=== PATIENT | male | born 1940 | race Caucasian/White ===

== ENCOUNTER → 2018-02-20 10:36 | Outpatient (CLI) | payer MEDICARE, SELFPAY ==
[2018-02-20 11:21] LABS: Add Manual Diff / Slide Review NO; Basophils Percent Auto 0.7 % (0-2); Eosinophils Percent Auto 3.1 % (2-4); Hematocrit 40.5 % (41-53); Hemoglobin 13.7 g/dL (13.5-17.5); Lymphocytes Percent Auto 36.4 % (25-40); Mean Corpuscular HGB Conc 33.8 % (30-36); Mean Corpuscular Hemoglobin 31.2 PG (26-34); Mean Corpuscular Volume 92.2 fL (80-100); Monocytes Percent Auto 8.1 % (3-14); Neutrophils Absolute Auto 4100 /uL (3000-5900); Neutrophils Percent Auto 51.7 % (50-75); Platelet Count 279 X10^3/uL (150-400); Red Blood Cell Count 4.39 X10^6/uL (4.5-5.9); Red Cell Distribution Width 13.4 % (11.6-14.8); White Blood Cell Count 7.8 X10^3/uL (4.5-11.0)
[2018-02-20 11:52] LABS: Erythrocyte Sedimentation Rate 24 MM/HR (0-15)
[2018-02-20 11:54] LABS: Alanine Aminotransferase 22 IU/L (21-72); Albumin 4.7 g/dL (3.5-5.0); Albumin Globulin Ratio 1.7 (1.0-2.8); Alkaline Phosphatase 66 U/L (38-126); Aspartate Aminotransferase 20 IU/L (17-59); BUN Creatinine Ratio 13.3 (6-22); Bilirubin Total 0.6 mg/dL (0.2-1.3); Blood Urea Nitrogen 12 mg/dL (9-20); C-Reactive Protein Quant 0.8 mg/dL (<1.0); Carbon Dioxide 24 mmol/L (22-32); Chloride 105 mmol/L (98-107); Cholesterol 134 mg/dL (140-199); Estimated Glomerular Filt Rate > 60.0 mL/min (>60); Globulin 2.8 g/dL (1.7-4.1); Glucose 100 mg/dL (80-110); HDL Cholesterol 31 mg/dL (40-60); HEMOLYSIS < 15 (0-50); LDL Cholesterol Calculated 67 mg/dL (<100); Potassium 4.3 mmol/L (3.4-5.1); Sodium 144 mmol/L (137-145); Total Protein 7.5 g/dL (6.3-8.2); Triglycerides 181 mg/dL (35-150); Uric Acid 8.8 mg/dL (3.5-8.5)
[2018-02-20 12:20] LABS: Thyroid Stimulating Hormone 2.71 uIU/mL (0.47-4.68)
== END ==
PROVIDERS: Family Provider Family Medicine; PCP Family Medicine; Visit Provider Family Medicine
DX: R42 Dizziness and giddiness (principal)
CPT/HCPCS: 36415; 80053; 80061; 84443; 84550; 85025; 85651; 86140

== ENCOUNTER → 2019-05-04 10:26 | Outpatient (CLI) | payer MEDICARE, SELFPAY ==
[2019-05-04 11:22] LABS: Add Manual Diff / Slide Review NO; Basophils Absolute Auto 0 /uL (0-100); Basophils Percent Auto 0.6 % (0-2); Eosinophils Absolute Auto 300 /uL (0-450); Eosinophils Percent Auto 3.5 % (2-4); Hematocrit 41.5 % (41-53); Lymphocytes Absolute Auto 2500 /uL (1100-4500); Lymphocytes Percent Auto 33.1 % (25-40); Mean Corpuscular HGB Conc 33.7 % (30-36); Mean Corpuscular Hemoglobin 31.2 PG (26-34); Mean Corpuscular Volume 92.6 fL (80-100); Monocytes Absolute Auto 600 /uL (0-900); Monocytes Percent Auto 8.1 % (3-14); Neutrophils Absolute Auto 4100 /uL (1500-7000); Neutrophils Percent Auto 54.7 % (50-75); Platelet Count 272 X10^3/uL (150-400); Red Blood Cell Count 4.48 X10^6/uL (4.5-5.9); Red Cell Distribution Width 13.2 % (11.6-14.8); White Blood Cell Count 7.5 X10^3/uL (4.5-11.0)
[2019-05-04 13:16] LABS: Alanine Aminotransferase 19 IU/L (<50); Albumin 4.8 g/dL (3.5-5.0); Albumin Globulin Ratio 1.6 (1.0-2.8); Alkaline Phosphatase 70 U/L (38-126); Aspartate Aminotransferase 27 IU/L (17-59); BUN Creatinine Ratio 13.6 (6-22); Bilirubin Total 0.6 mg/dL (0.2-1.3); Blood Urea Nitrogen 15 mg/dL (9-20); Calcium 9.8 mg/dL (8.4-10.2); Carbon Dioxide 24 mmol/L (22-32); Chloride 103 mmol/L (98-107); Cholesterol 162 mg/dL (140-199); Estimated Glomerular Filt Rate > 60.0 mL/min (>60); Glucose 101 mg/dL (80-110); HDL Cholesterol 32 mg/dL (40-60); HEMOLYSIS < 15 (0-50); LDL Cholesterol Calculated 79 mg/dL (<100); Potassium 4.5 mmol/L (3.4-5.1); Sodium 140 mmol/L (137-145); Total Protein 7.8 g/dL (6.3-8.2); Triglycerides 256 mg/dL (35-150); Uric Acid 8.5 mg/dL (3.5-8.5)
[2019-05-04 13:47] LABS: Prostate Specific Antigen Scrn 3.85 ng/mL (0.1-4.0)
== END ==
PROVIDERS: PCP Family Medicine; Visit Provider Family Medicine
DX: Z95.1 Presence of aortocoronary bypass graft (principal)
CPT/HCPCS: 36415; 80053; 80061; 84550; 85025; G0103

== ENCOUNTER 2019-08-22 10:21 | Emergency (ER) | payer MEDICARE, SELFPAY ==
[2019-08-22 10:23] VITALS: BP 142/66; PULSE 66; RESP 14; TEMP 36.4; O2SAT 100; BMI 29.7
--- NOTE | 2019-08-22 10:29 | PC.NURSE ---
pt believes he has a kidney stone with hx of same. Pt unable to urinate upon arrival to ED,last urianted [phone]
--- NOTE | 2019-08-22 11:12 | ED.MALEGU ---
HPI - Male Genitourinary General Chief complaint: Urogenital-Male Stated complaint: possible kidney stone Time Seen by Provider: 08/22/19 10:53 Source: patient and old records reviewed Mode of arrival: Ambulatory Limitations: no limitations History of Present Illness HPI Narrative: This is a 79-year-old male comes the emergency department with complaint of left lower quadrant pain. Patient states that he developed pain this morning about 8:00 a.m. He states it feels like when he has had kidney stones in the past. He states this feels similar location. He denies any flank or back pain. He denies any pain elsewhere in his abdomen. No fevers. He has had some nausea and vomiting several times this morning. He has had normal bowel movements with no black or bloody stools or change in character. He has had no major changes in urination he has not noted any hematuria, dysuria, urgency or frequency. Patient states he has had lithotripsy several times in the past. He has followed with Dr. Bellamy with Urology over at [facility]. He also has a history of CABG, he takes an aspirin daily, atorvastatin as well as blood pressure medication. Related Data Home Medications Medication Instructions Recorded Confirmed diphenhydramine-acetaminophen 2 tab PO HSP PRN #0 10/17/16 01/15/18 [Tylenol PM Extra Strength] aspirin 81 mg tablet,delayed 162 mg PO DAILY 01/15/18 01/15/18 release Previous Rx's Medication Instructions Recorded famotidine [Pepcid] 0 PO QDAY #100 10/17/16 atorvastatin 40 mg tablet 40 mg PO HS #90 tab 05/04/19 losartan 25 mg tablet 25 mg PO QDAY #90 tab 05/04/19 probenecid 500 mg tablet 500 mg PO BID #60 tab 05/04/19 hydrocodone-acetaminophen [Weston] 1 tab PO Q6H PRN #10 tab 08/22/19 tamsulosin [Flomax] 0.4 mg PO DAILY #7 cap 08/22/19 Allergies Allergy/AdvReac Type Severity Reaction Status Date / Time furosemide [From LASIX] Allergy Mild RASH Verified 08/22/19 10:26 Sulfa (Sulfonamide Allergy Verified 08/22/19 10:26 Antibiotics) Review of Systems Review of Systems ROS Unobtainable: All systems reviewed & are unremarkable except as noted in HPI and below Patient History Medical History Acne (Chronic ~1955) Cataracts, bilateral (Chronic ~2009) Chicken pox (Resolved ~1947) Gout (Chronic ~2004) Kidney stones (Resolved ~1982) Measles (Resolved ~1947) Mumps (Resolved ~1949) Sleep apnea (Chronic ~2009) Surgical History Anesthesia (Resolved) History of lithotripsy (~1982) History of lithotripsy (~2002) History of surgical removal of ganglion cyst (Resolved ~1967) Status post appendectomy (~1948) Status post cholecystectomy (~2002) Family History (Updated 01/14/18 @ 21:20 by Kandy Burton) Father Heart disease Mother Diabetes mellitus Heart disease Hypertension Stroke Brother Cancer Social History Smoking Status: Former smoker Smoking Status: Former smoker alcohol intake frequency: holidays/special occasions only Substance Use Type: does not use Exam Narrative Exam Narrative: GENERAL: Alert and oriented x three, well-nourished elderly male in mild distress. HEENT: Head normocephalic, atraumatic, EOMI, pupils reactive, face symmetric, moist mucous membranes NECK: Supple, full range of motion CARDIOVASCULAR: Regular rate and rhythm without murmurs, rubs or gallops. RESPIRATORY: Breath sounds equal bilaterally, no wheezes rales or rhonchi. ABDOMEN: Soft, nontender. Normoactive bowel sounds all 4 quadrants. No guarding or rebound, rigidity, no mass : No CVA tenderness EXTREMITIES: Normal range of motion, no clubbing or edema. Neurovascularly intact NEUROLOGICAL: Cranial nerves II through XII grossly intact. Moving all extremities SKIN: Warm, dry, no petechiae, no rashes or lesions. Initial Vital Signs Initial Vital Signs: Vital Signs Temperature 97.5 F L 08/22/19 10:23 Pulse Rate 66 08/22/19 10:23 Respiratory Rate 14 08/22/19 10:23 Blood Pressure 142/66 H 08/22/19 10:23 Pulse Oximetry 100 08/22/19 10:23 Course Orders Ordered: ED Orders 08/22/19 10:28 Basic Metabolic Panel Stat Complete Blood Count AUTO DIFF Stat 08/22/19 11:19 CT kidney ureter bladder (KUB) Stat 08/22/19 12:32 Urine Microscopic Stat Discontinued Medications Sodium Chloride (Normal Saline 0.9%) 1,000 mls @ 1,000 mls/hr IV BOLUS ONE Stop: 08/22/19 12:17 Last Infusion: 08/22/19 12:36 Dose: 0 mls/hr Documented by: Admin: 08/22/19 11:23 Dose: 1,000 mls/hr Documented by: MARI Ketorolac Tromethamine (Toradol) 15 mg IV NOW ONE Stop: 08/22/19 11:19 Last Admin: 08/22/19 11:23 Dose: 15 mg Documented by: MARI Ondansetron HCl (Zofran) 4 mg IV NOW ONE Stop: 08/22/19 11:19 Last Admin: 08/22/19 11:23 Dose: 4 mg Documented by: MARI Vital Signs Vital signs: Vital Signs - 8 hr 08/22/19 10:23 08/22/19 12:30 Temperature 97.5 F L Pulse Rate 66 62 Respiratory Rate 14 16 Blood Pressure 142/66 H Blood Pressure [Right Arm] 180/86 H Pulse Oximetry 100 98 MDM - Male Genitourinary Lab Data Attestation: I reviewed the patient's lab results. Result diagrams: 08/22/19 10:28 08/22/19 10:28 Labs: Lab Results 08/22/19 08/22/19 08/22/19 Range/Units 10:28 10:28 12:32 WBC 7.1 (4.5-11.0) X10^3/uL RBC 4.25 L (4.5-5.9) X10^6/uL Hgb 13.5 (13.5-17.5) g/dL Hct 39.9 L (41-53) % MCV 93.8 (80-100) fL MCH 31.6 (26-34) PG MCHC 33.7 (30-36) % RDW 13.5 (11.6-14.8) % Plt Count 259 (150-400) X10^3/uL Neut % (Auto) 58.9 (50-75) % Lymph % (Auto) 28.5 (25-40) % Curry % (Auto) 7.9 (3-14) % Eos % (Auto) 4.0 (2-4) % Baso % (Auto) 0.7 (0-2) % Neut # (Auto) 4200 (0098-4657) /uL Lymph # (Auto) 2000 (7895-5112) /uL Curry # (Auto) 600 (0-900) /uL Eos # (Auto) 300 (0-450) /uL Baso # (Auto) 0 (0-100) /uL Sodium 142 (137-145) mmol/L Potassium 4.3 (3.4-5.1) mmol/L Chloride 106 (98-107) mmol/L Carbon Dioxide 26 (22-32) mmol/L BUN 16 (9-20) mg/dL Creatinine 1.25 (0.66-1.25) mg/dL Estimated GFR 55.4 L (>60) mL/min BUN/Creatinine Ratio 12.8 (6-22) Glucose 135 H (80-110) mg/dL Calcium 9.3 (8.4-10.2) mg/dL Urine RBC 1-5/hpf (0-5/HPF) Urine WBC 0-1/hpf (0-5/HPF) Ur Squamous Epith Cells 0-1 /hpf (0-5/HPF) Urine Bacteria None seen (None) Ur Culture Indicated? Cult not indicated Urine Dip Bedside Urine Glucose Negative Bedside Urine Bilirubin - Negative Bedside Urine Ketone - Negative Urine Specific Herald 1.025 Bedside Urine Occult Blood + Bedside Urine pH 5.5 Bedside Urine Protein +/- 15 Bedside Urine Urobilinogen - Negative Bedside Urine Nitrite - Negative Bedside Urine Leukocytes - Negative Esterase Imaging Data CT scan - abdomen/pelvis: Radiologist's Impression: [address] [address] [address] Scan Report Signed Patient: Shane Rice [facility]#: [id number] : 8Acct:[id number] Age/Sex: 79 / MDate of Service: 08/22/19 Loc: ED Accession Number: [id number] Procedure: CT kidney ureter bladder (KUB) Ordering Provider: Karen Zepeda D.O. PROCEDURE: CT KIDNEY URETER BLADDER (KUB) INDICATIONS: LLQ pain, hx of stones, feels similar TECHNIQUE: Noncontrast 5 mm thick sections acquired from the diaphragms to the symphysis. 5 mm thick coronal and sagittal reformats were then performed. For radiation dose reduction, the following was used: automated exposure control, adjustment of mA and/or kV according to patient size. COMPARISON: [facility], CT, THORAX WITHOUT CONTRAST, 04/09/2013, 11:46. FINDINGS: Image quality: Diagnostic. Lung bases: There is mild scarring versus atelectasis at the right lung base. A small pulmonary nodule is evident along the lateral margin of the left costophrenic angle, measuring up to 5 mm in diameter, which is not significantly changed since 2012, suggesting a benign process. Heart size is normal. Urinary system: Both kidneys are normal in size. No obvious renal lesions are appreciated. However, evaluation for renal abnormalities is limited without contrast. There are multiple bilateral renal calculi identified with the largest located within the mid aspect of the left kidney, measuring up to approximately 7 mm. There is mild left-sided hydronephrosis, related to a left ureteral calculus located at the ureteropelvic junction, which measures approximately 4 x 4 by 5 mm (image 49, series 2). No additional left-sided ureteral calculi are evident. However, there is a small bladder calculus identified near the vesicoureteral junction within the bladder itself, measuring approximately 3 mm in diameter. No right ureteral calculi, hydronephrosis, or hydroureter is evident. No significant urinary bladder wall thickening is appreciated. The prostate gland is not enlarged. Other solid organs: Liver is normal in size. Gallbladder is surgically absent. Pancreas is normal in contours. Spleen is normal in size. No adrenal nodules. Peritoneum and bowel: The stomach is unremarkable. The small bowel loops are nondilated. No abnormal amount of stool is seen within the colon. Extensive distal colonic diverticulosis is identified without surrounding inflammation to suggest acute diverticulitis. A more focally prominent peripherally calcified diverticula in appears to be present within the ascending colon just above the level of the cecum. The appendix is well-visualized and normal. There is no free fluid, loculated fluid collection, or free air. There is a very small fat containing periumbilical hernia. Nodes and vessels: No retroperitoneal or mesenteric adenopathy by size criteria. Aorta and inferior vena cava are normal in caliber. There is aortic atherosclerosis. Other pelvic soft tissues: No free pelvic fluid. No pelvic adenopathy is appreciated. Small bilateral fat containing inguinal hernias are noted. No free fluid or loculated fluid collection is appreciated. Note is made of bilateral scrotal hydroceles. Bones: No suspicious bony lesions. No vertebral body compression fractures. Moderate multilevel degenerative changes of the lower lumbar spine are appreciated. Median sternotomy changes are incidentally noted. There mild degenerative changes of the pelvic joints. IMPRESSION: 1. Small to moderate-sized at least partially obstructing proximal left ureteral calculus at the UPJ with associated mild hydronephrosis. 2. Additional nonobstructing bilateral renal calculi. No right sided hydronephrosis. 3. Colonic diverticulosis without diverticulitis. 4. Small bilateral fat containing angle hernias. 5. Bilateral scrotal hydroceles. Dictated by: Jorje Thompson M.D. on 08/22/2019 at 10:51 Approved by: Jorje Thompson M.D. on 08/22/2019 at 10:57 MDM Narrative Medical decision making narrative: Patient's CBC and BMP did not show major changes. His CT shows multiple bilateral renal calculi, there is some mild left hydro with a calculus at the ureteropelvic junction that is 4 x 5 mm. There is a small bladder calculi identified near the vesicoureteral junction within the bladder itself that is 3 mm in diameter. Patient does have colonic diverticulosis but no diverticulitis noted. There is some focally prominent peripherally calcified diverticula in the ascending colon just above the level of cecum appendix is well visualized and normal. A very small fat containing periumbilical hernia. Patient also has bilateral scrotal hydroceles. Patient urine sample shows hematuria, no signs of infection. Patient is feeling better and pain well controlled. He has follow up with urology. Plan for flomax, ibuprofen if he tolerates and norco prn. Discussed return precautions. Discharge Plan Departure Patient Disposition: Home Clinical Impression: Kidney stone on left side Discharge Date/Time: 08/22/19 12:37 Instructions: DI for Kidney Stones Activity Restrictions/Additional Instructions: Follow-up with your urologist if your symptoms are not resolving over the next several day. Take flomax once daily until gone. Take pain medication as prescribed, this medication can make you sleepy do not drive, perform hazardous activities or make any major decisions while taking it. Make sure your taking a stool softener while taking any narcotic pain medication. Your prescription was sent ot [facility]. Return for fevers greater 100.4 F, rapidly worsening abdominal or flank pain, persistent vomiting, passing out, inability urinate, black or bloody stools or other new or concerning symptoms. Prescriptions: New tamsulosin [Flomax] 0.4 mg capsule 0.4 mg PO DAILY Qty: 7 RF: 0 hydrocodone-acetaminophen [Weston] 5-325 mg tablet 1 tab PO Q6H PRN (Reason: pain) Qty: 10 RF: 0 No Action diphenhydramine-acetaminophen [Tylenol PM Extra Strength] 500 MG/25 MG tablet 2 tab PO HSP PRNQty: 0 RF: 0 famotidine [Pepcid] 20 MG tablet 0 PO QDAY Qty: 100 RF: 5 atorvastatin 40 mg tablet 40 mg PO HS Qty: 90 RF: 3 losartan 25 mg tablet 25 mg PO QDAY Qty: 90 RF: 3 probenecid 500 mg tablet 500 mg PO BID Qty: 60 RF: 5 aspirin 81 mg tablet,delayed release (DR/EC) 162 mg PO DAILY RF: 0 Referrals: Kermit Peterson MD [Primary Care Provider] - Jameson Bellamy MD [Non-Staff] -
--- NOTE | 2019-08-22 11:19 | DI.CT.S_ITS ---
PROCEDURE: CT KIDNEY URETER BLADDER (KUB) INDICATIONS: LLQ pain, hx of stones, feels similar TECHNIQUE: Noncontrast 5 mm thick sections acquired from the diaphragms to the symphysis. 5 mm thick coronal and sagittal reformats were then performed. For radiation dose reduction, the following was used: automated exposure control, adjustment of mA and/or kV according to patient size. COMPARISON: [facility], CT, THORAX WITHOUT CONTRAST, 04/09/2013, 11:46. FINDINGS: Image quality: Diagnostic. Lung bases: There is mild scarring versus atelectasis at the right lung base. A small pulmonary nodule is evident along the lateral margin of the left costophrenic angle, measuring up to 5 mm in diameter, which is not significantly changed since 2012, suggesting a benign process. Heart size is normal. Urinary system: Both kidneys are normal in size. No obvious renal lesions are appreciated. However, evaluation for renal abnormalities is limited without contrast. There are multiple bilateral renal calculi identified with the largest located within the mid aspect of the left kidney, measuring up to approximately 7 mm. There is mild left-sided hydronephrosis, related to a left ureteral calculus located at the ureteropelvic junction, which measures approximately 4 x 4 by 5 mm (image 49, series 2). No additional left-sided ureteral calculi are evident. However, there is a small bladder calculus identified near the vesicoureteral junction within the bladder itself, measuring approximately 3 mm in diameter. No right ureteral calculi, hydronephrosis, or hydroureter is evident. No significant urinary bladder wall thickening is appreciated. The prostate gland is not enlarged. Other solid organs: Liver is normal in size. Gallbladder is surgically absent. Pancreas is normal in contours. Spleen is normal in size. No adrenal nodules. Peritoneum and bowel: The stomach is unremarkable. The small bowel loops are nondilated. No abnormal amount of stool is seen within the colon. Extensive distal colonic diverticulosis is identified without surrounding inflammation to suggest acute diverticulitis. A more focally prominent peripherally calcified diverticula in appears to be present within the ascending colon just above the level of the cecum. The appendix is well-visualized and normal. There is no free fluid, loculated fluid collection, or free air. There is a very small fat containing periumbilical hernia. Nodes and vessels: No retroperitoneal or mesenteric adenopathy by size criteria. Aorta and inferior vena cava are normal in caliber. There is aortic atherosclerosis. Other pelvic soft tissues: No free pelvic fluid. No pelvic adenopathy is appreciated. Small bilateral fat containing inguinal hernias are noted. No free fluid or loculated fluid collection is appreciated. Note is made of bilateral scrotal hydroceles. Bones: No suspicious bony lesions. No vertebral body compression fractures. Moderate multilevel degenerative changes of the lower lumbar spine are appreciated. Median sternotomy changes are incidentally noted. There mild degenerative changes of the pelvic joints. IMPRESSION: 1. Small to moderate-sized at least partially obstructing proximal left ureteral calculus at the UPJ with associated mild hydronephrosis. 2. Additional nonobstructing bilateral renal calculi. No right sided hydronephrosis. 3. Colonic diverticulosis without diverticulitis. 4. Small bilateral fat containing angle hernias. 5. Bilateral scrotal hydroceles. Dictated by: Jorje Thompson M.D. on 08/22/2019 at 10:51 Approved by: Jorje Thompson M.D. on 08/22/2019 at 10:57
[2019-08-22] MEDS: SODIUM CHLORIDE 0.9% 1,000 ML 1000 ML IV (11:23)
[2019-08-22] MEDS: KETOROLAC 60 MG/2 ML VIAL 15 MG IV (11:23)
[2019-08-22] MEDS: ONDANSETRON 4 MG/2 ML INJ IV (11:23)
[2019-08-22 11:30] LABS: Add Manual Diff / Slide Review NO; Basophils Absolute Auto 0 /uL (0-100); Basophils Percent Auto 0.7 % (0-2); Eosinophils Absolute Auto 300 /uL (0-450); Hematocrit 39.9 % (41-53); Hemoglobin 13.5 g/dL (13.5-17.5); Lymphocytes Absolute Auto 2000 /uL (1100-4500); Lymphocytes Percent Auto 28.5 % (25-40); Mean Corpuscular HGB Conc 33.7 % (30-36); Mean Corpuscular Hemoglobin 31.6 PG (26-34); Mean Corpuscular Volume 93.8 fL (80-100); Monocytes Absolute Auto 600 /uL (0-900); Monocytes Percent Auto 7.9 % (3-14); Neutrophils Absolute Auto 4200 /uL (1500-7000); Neutrophils Percent Auto 58.9 % (50-75); Platelet Count 259 X10^3/uL (150-400); Red Blood Cell Count 4.25 X10^6/uL (4.5-5.9); Red Cell Distribution Width 13.5 % (11.6-14.8); White Blood Cell Count 7.1 X10^3/uL (4.5-11.0)
[2019-08-22 11:31] LABS: BUN Creatinine Ratio 12.8 (6-22); Blood Urea Nitrogen 16 mg/dL (9-20); Calcium 9.3 mg/dL (8.4-10.2); Carbon Dioxide 26 mmol/L (22-32); Chloride 106 mmol/L (98-107); Estimated Glomerular Filt Rate 55.4 mL/min (>60); Glucose 135 mg/dL (80-110); HEMOLYSIS < 15 (0-50); Potassium 4.3 mmol/L (3.4-5.1); Sodium 142 mmol/L (137-145)
[2019-08-22 12:30] VITALS: BP 180/86; PULSE 62; RESP 16; O2SAT 98
[2019-08-22 12:35] LABS: Bacteria Urine None Seen
[2019-08-22 12:42] LABS: Culture Indicated Urine Cult Not Indicated; RBC Urine 1-5/HPF (0-5/HPF); Squamous Epithelial Cell Urine 0-1 /HPF (0-5/HPF); WBC Urine 0-1/HPF (0-5/HPF)
== END 2019-08-22 12:37 | disposition home or self-care (01) ==
PROVIDERS: Emergency Provider Emergency Medicine; PCP Family Medicine
DX: N20.0 Calculus of kidney (principal); Z87.442 Personal history of urinary calculi
CPT/HCPCS: 36415; 74176; 80048; 81003; 81015; 85025; 96361; 96374; 96375; 99284; J1885; J2405

== ENCOUNTER → 2020-04-19 07:25 | Outpatient (CLI) | payer MEDICARE, SELFPAY ==
[2020-04-19 09:01] LABS: Alanine Aminotransferase 17 IU/L (<50); Albumin 4.5 g/dL (3.5-5.0); Albumin Globulin Ratio 1.5 (1.0-2.8); Alkaline Phosphatase 71 U/L (38-126); Aspartate Aminotransferase 22 IU/L (17-59); Bilirubin Total 0.5 mg/dL (0.2-1.3); Blood Urea Nitrogen 17 mg/dL (9-20); Calcium 9.7 mg/dL (8.4-10.2); Carbon Dioxide 24 mmol/L (22-32); Chloride 105 mmol/L (98-107); Cholesterol 147 mg/dL (140-199); Estimated Glomerular Filt Rate > 60.0 mL/min (>60); Glucose 104 mg/dL (80-110); HDL Cholesterol 33 mg/dL (40-60); HEMOLYSIS < 15 (0-50); LDL Cholesterol Calculated 64 mg/dL (<100); Potassium 4.7 mmol/L (3.4-5.1); Sodium 141 mmol/L (137-145); Total Protein 7.5 g/dL (6.3-8.2); Triglycerides 250 mg/dL (35-150)
[2020-04-19 09:31] LABS: Prostate Specific Antigen Scrn 2.87 ng/mL (0.1-4.0)
== END ==
PROVIDERS: PCP Family Medicine; Referring Provider Family Medicine; Visit Provider Family Medicine
DX: E78.2 Mixed hyperlipidemia (principal); Z12.5 Encounter for screening for malignant neoplasm of prostate
CPT/HCPCS: 36415; 80053; 80061; G0103

== ENCOUNTER 2020-12-11 13:06 | Emergency (ER) | payer MEDICARE, SELFPAY ==
[2020-12-11 13:11] VITALS: BP 181/84; PULSE 53; RESP 18; TEMP 36.7; O2SAT 96
[2020-12-11] MEDS: ONDANSETRON 4 MG/2 ML INJ IV (13:37)
[2020-12-11] MEDS: KETOROLAC 30 MG/ML VIAL 15 MG IV (13:37)
[2020-12-11 13:49] LABS: Add Manual Diff / Slide Review NO; Basophils Absolute Auto 0 /uL (0-100); Basophils Percent Auto 0.4 % (0-2); Eosinophils Absolute Auto 200 /uL (0-450); Eosinophils Percent Auto 1.3 % (2-4); Hematocrit 41.1 % (41-53); Hemoglobin 13.8 g/dL (13.5-17.5); Lymphocytes Absolute Auto 3300 /uL (1100-4500); Lymphocytes Percent Auto 26.9 % (25-40); Mean Corpuscular HGB Conc 33.6 % (30-36); Mean Corpuscular Hemoglobin 31.4 PG (26-34); Mean Corpuscular Volume 93.4 fL (80-100); Monocytes Absolute Auto 1000 /uL (0-900); Neutrophils Absolute Auto 7700 /uL (1500-7000); Neutrophils Percent Auto 63.4 % (50-75); Platelet Count 278 X10^3/uL (150-400); Red Cell Distribution Width 13.3 % (11.6-14.8); White Blood Cell Count 12.1 X10^3/uL (4.5-11.0)
[2020-12-11 13:52] LABS: Alanine Aminotransferase 23 IU/L (<50); Albumin 4.5 g/dL (3.5-5.0); Albumin Globulin Ratio 1.5 (1.0-2.8); Alkaline Phosphatase 70 U/L (38-126); Aspartate Aminotransferase 29 IU/L (17-59); BUN Creatinine Ratio 18.3 (6-22); Bilirubin Total 0.7 mg/dL (0.2-1.3); Blood Urea Nitrogen 21 mg/dL (9-20); Calcium 9.4 mg/dL (8.4-10.2); Carbon Dioxide 22 mmol/L (22-32); Chloride 104 mmol/L (98-107); Estimated Glomerular Filt Rate > 60.0 mL/min (>60); Glucose 143 mg/dL (80-110); HEMOLYSIS 16 (0-50); Lipase 30 U/L (23-300); Sodium 139 mmol/L (137-145); Total Protein 7.5 g/dL (6.3-8.2)
--- NOTE | 2020-12-11 14:02 | DI.CT.S_ITS ---
PROCEDURE: CT KIDNEY URETER BLADDER (KUB) INDICATIONS: right flank pain TECHNIQUE: Axial sections were acquired from the lung bases to the pubic symphysis. Coronal and sagittal reformats were performed. For radiation dose reduction, the following was used: automated exposure control, adjustment of mA and/or kV according to patient size. COMPARISON:[facility], CT, CT KIDNEY URETER BLADDER (KUB), 08/22/2019, 11:28. FINDINGS: Image quality: Excellent. Lung bases: Unremarkable. Heart: The heart is enlarged and demonstrates aortic valvuloplasty changes. There has been a median sternotomy. URINARY: Right Kidney: Mild right hydronephrosis. A few punctate intrarenal calculi are present in the mid and lower pole. Mild, non-specific perinephric inflammation. Right Ureter: [id number] right hydroureter and trace periureteric inflammation. 3 mm stone in the distal ureter at the level of the thoracic pelvic inlet. Left Kidney: 9 mm nonobstructing stone in the left kidney and punctate nonobstructing lower pole stone. Nonspecific perinephric inflammatory changes. No hydronephrosis. Left Ureter: No hydroureter or ureteral calcifications. Bladder: Normal wall thickness. No stones. Normal size prostate gland. ABDOMEN: Liver: Unremarkable. Gallbladder: Surgically absent Biliary ducts: Unremarkable. Pancreas: Unremarkable. Spleen: Unremarkable. Adrenal Glands: Unremarkable. Stomach and Bowel: Extensive diverticular disease seen in the descending and sigmoid colon. No acute diverticulitis. The stomach and small bowel are within normal limits. Peritoneum: No abnormal intraperitoneal fluid. No free air. Ventral Wall: Tiny fat containing umbilical hernia. Abdominal Nodes: No enlarged retroperitoneal or mesenteric lymph nodes. Vessels: Aorta and inferior vena cava are normal in size. Heavy abdominal aortic atherosclerotic calcification. PELVIS: Pelvic Organs: Unremarkable. Pelvic Nodes: Unremarkable. Miscellaneous: Small right and moderate-sized left fat containing inguinal hernia. Bilateral hydroceles are partially imaged. Moderate pelvic vascular calcification. Bones: Degenerative disc, endplate, and facet joint changes in the lower lumbar spine. IMPRESSION: 1. 3 mm distal right ureteral stone causing mild hydroureteronephrosis. 2. Bilateral nonobstructing intrarenal calculi. 3. Diverticulosis without acute diverticulitis of the colon. 4. Heavy systemic atherosclerosis. Dictated by: Mary Chapa M.D. on 12/11/2020 at 14:33 Approved by: Mary Chapa M.D. on 12/11/2020 at 14:39
--- NOTE | 2020-12-11 15:24 | ED.ABDPAIN ---
HPI - Abdominal Pain General Chief Complaint: Abdominal Pain Stated Complaint: poss kidney stones Time Seen by Provider: 12/11/20 14:02 Source: patient Mode of arrival: Ambulatory History of Present Illness HPI narrative: Patient is an 80-year-old male with history hyperlipidemia and kidney stones presenting with right-sided flank pain. He says it started earlier today radiating around to his abdomen feels like previous kidney stones. He in the past he has had lithotripsy. He has had some nausea but no vomiting. Pain is significantly better after Toradol. Related Data Home Medications Medication Instructions Recorded Confirmed diphenhydramine 25 2 tab PO HSP PRN #0 10/17/16 04/18/20 mg-acetaminophen 500 mg tablet (Tylenol PM Extra Strength) aspirin 81 mg tablet,delayed 162 mg PO DAILY 01/15/18 04/18/20 release Previous Rx's Medication Instructions Recorded famotidine 20 mg tablet (Pepcid) 0 PO QDAY #100 10/17/16 atorvastatin 40 mg tablet 40 mg PO HS #90 tab 04/18/20 losartan 25 mg tablet 25 mg PO QDAY #90 tab 04/18/20 hydrocodone 5 mg-acetaminophen 325 1 tab PO Q6H PRN #10 tab 12/11/20 mg tablet ondansetron 4 mg disintegrating 4 mg PO Q8H PRN #10 tab 12/11/20 tablet Allergies Allergy/AdvReac Type Severity Reaction Status Date / Time furosemide [From LASIX] Allergy Mild RASH Verified 04/18/20 14:31 Sulfa (Sulfonamide Allergy Verified 04/18/20 14:31 Antibiotics) Review of Systems Review of Systems Narrative: GENERAL: Denies chills, fatigue, malaise, fever, sweats, travel HEENT: Denies sinus pain, ear pain, sore throat, difficulty swallowing, neck pain RESPIRATORY: Denies dyspnea, cough, wheezing, hemoptysis, sputum. CARDIOVASCULAR: Denies chest pain, palpitations, orthopnea, edema GASTROINTESTINAL: Denies nausea, vomiting, abdominal pain, diarrhea, constipation, melena. : See HPI MUSCULOSKELETAL: Denies weakness, joint pain, or bony pain SKIN: No rash, no erythema, no pruritus NEUROLOGIC: Denies weakness, dizziness, headache, numbness, change in speech, confusion PSYCHIATRIC: No concerning psychosocial issues. 12 point review of systems is negative except for those stated above and HPI Patient History Medical History (Updated 12/11/20 @ 15:30 by Tess Steel DO) Acne (~1955) Cataracts, bilateral (~2009) Chicken pox (~1947) Gout (~2004) Kidney stones (~1982) Measles (~1947) Mumps (~1949) Sleep apnea (~2009) Surgical History Anesthesia History of lithotripsy (~1982) History of lithotripsy (~2002) History of surgical removal of ganglion cyst (~1967) Status post appendectomy (~1948) Status post cholecystectomy (~2002) Family History (Updated 01/14/18 @ 21:20 by Kandy Burton) Father Heart disease Mother Diabetes mellitus Heart disease Hypertension Stroke Brother Cancer Social History Smoking Status: Former smoker Smoking Status: Former smoker alcohol intake frequency: holidays/special occasions only Substance Use Type: does not use Exam Initial Vital Signs Initial Vital Signs: Vital Signs Temperature 98.0 F 12/11/20 13:11 Pulse Rate 53 L 12/11/20 13:11 Respiratory Rate 18 12/11/20 13:11 Blood Pressure 181/84 H 12/11/20 13:11 Pulse Oximetry 96 12/11/20 13:11 GENERAL: Alert 80-year-old male appears well HEENT: Head atraumatic,EOMI, pupils reactive, face symmetric, moist mucous membranes CARDIOVASCULAR: Regular rate and rhythm without murmurs, rubs or gallops. RESPIRATORY: Breath sounds equal bilaterally, no wheezes rales or rhonchi. ABDOMEN: Soft minimal right lower quadrant pain no guarding no rebound negative Rodney sign : Right CVA tenderness EXTREMITIES: Normal range of motion, no clubbing or edema. Neurovascularly intact NEUROLOGICAL: Alert and oriented x4.Normal gait and speech. SKIN: Warm, dry, no laceration, no petechiae, no rashes or lesions. Course Orders Ordered: ED Orders 12/11/20 13:20 Complete Blood Count AUTO DIFF Stat Comprehensive Metabolic Panel Stat Lipase Stat Urine Culture Stat Urine Microscopic Stat 12/11/20 14:02 CT kidney ureter bladder (KUB) Stat Discontinued Medications Ketorolac Tromethamine (Ketorolac 30 Mg/Ml Vial) 15 mg IV NOW ONE Stop: 12/11/20 13:33 Last Admin: 12/11/20 13:37 Dose: 15 mg Documented by: BTONER Ondansetron HCl (Ondansetron 4 Mg/2 Ml Inj) 4 mg IV NOW ONE Stop: 12/11/20 13:32 Last Admin: 12/11/20 13:37 Dose: 4 mg Documented by: BTONER Vital Signs Vital signs: Vital Signs - 8 hr 12/11/20 13:11 12/11/20 15:48 Temperature 98.0 F Pulse Rate 53 L 71 Respiratory Rate 18 Blood Pressure 181/84 H 140/75 Pulse Oximetry 96 97 MDM - Abdominal Pain Lab Data Result diagrams: 12/11/20 13:20 12/11/20 13:20 Labs: Lab Results 12/11/20 12/11/20 12/11/20 Range/Units 13:20 13:20 13:20 WBC 12.1 H (4.5-11.0) X10^3/uL RBC 4.40 L (4.5-5.9) X10^6/uL Hgb 13.8 (13.5-17.5) g/dL Hct 41.1 (41-53) % MCV 93.4 (80-100) fL MCH 31.4 (26-34) PG MCHC 33.6 (30-36) % RDW 13.3 (11.6-14.8) % Plt Count 278 (150-400) X10^3/uL Neut % (Auto) 63.4 (50-75) % Lymph % (Auto) 26.9 (25-40) % [place] % (Auto) 8.0 (3-14) % Eos % (Auto) 1.3 L (2-4) % Baso % (Auto) 0.4 (0-2) % Neut # (Auto) 7700 H (3646-3002) /uL Lymph # (Auto) 3300 (9443-4863) /uL [place] # (Auto) 1000 H (0-900) /uL Eos # (Auto) 200 (0-450) /uL Baso # (Auto) 0 (0-100) /uL Sodium 139 (137-145) mmol/L Potassium 4.0 (3.4-5.1) mmol/L Chloride 104 (98-107) mmol/L Carbon Dioxide 22 (22-32) mmol/L BUN 21 H (9-20) mg/dL Creatinine 1.15 (0.66-1.25) mg/dL Estimated GFR > 60.0 (>60) mL/min BUN/Creatinine Ratio 18.3 (6-22) Glucose 143 H (80-110) mg/dL Calcium 9.4 (8.4-10.2) mg/dL Total Bilirubin 0.7 (0.2-1.3) mg/dL AST 29 (17-59) IU/L ALT 23 (<50) IU/L Alkaline Phosphatase 70 (38-126) U/L Total Protein 7.5 (6.3-8.2) g/dL Albumin 4.5 (3.5-5.0) g/dL Globulin 3.0 (1.7-4.1) g/dL Albumin/Globulin Ratio 1.5 (1.0-2.8) Lipase 30 (23-300) U/L Urine RBC 10-30/hpf H (0-5/HPF) Urine WBC 1-5/hpf (0-5/HPF) Ur Squamous Epith Cells 0-1 /hpf (0-5/HPF) Amorphous Sediment 1+ Urine Bacteria Few (2-10) H (None) Urine Mucus 2+ H (Negative) Ur Culture Indicated? Culture not indicate Point of care testing: Urine Dip Bedside Urine Glucose Negative Bedside Urine Bilirubin - Negative Bedside Urine Ketone - Negative Urine Specific [place] 1.025 Bedside Urine Occult Blood +++ Bedside Urine pH 6.0 Bedside Urine Protein + 30 Bedside Urine Urobilinogen - Negative Bedside Urine Nitrite - Negative Bedside Urine Leukocytes - Negative Esterase Imaging Data CT scan - abdomen/pelvis: Radiologist's Impression: PROCEDURE: CT KIDNEY URETER BLADDER (KUB) INDICATIONS: right flank pain TECHNIQUE: Axial sections were acquired from the lung bases to the pubic symphysis. Coronal and sagittal reformats were performed. For radiation dose reduction, the following was used: automated exposure control, adjustment of mA and/or kV according to patient size. COMPARISON:[facility], CT, CT KIDNEY URETER BLADDER (KUB), 08/22/2019, 11:28. FINDINGS: Image quality: Excellent. Lung bases: Unremarkable. Heart: The heart is enlarged and demonstrates aortic valvuloplasty changes. There has been a median sternotomy. URINARY: Right Kidney: Mild right hydronephrosis. A few punctate intrarenal calculi are present in the mid and lower pole. Mild, non-specific perinephric inflammation. Right Ureter: [id number] right hydroureter and trace periureteric inflammation. 3 mm stone in the distal ureter at the level of the thoracic pelvic inlet. Left Kidney: 9 mm nonobstructing stone in the left kidney and punctate nonobstructing lower pole stone. Nonspecific perinephric inflammatory changes. No hydronephrosis. Left Ureter: No hydroureter or ureteral calcifications. Bladder: Normal wall thickness. No stones. Normal size prostate gland. ABDOMEN: Liver: Unremarkable. Gallbladder: Surgically absent Biliary ducts: Unremarkable. Pancreas: Unremarkable. Spleen: Unremarkable. Adrenal Glands: Unremarkable. Stomach and Bowel: Extensive diverticular disease seen in the descending and sigmoid colon. No acute diverticulitis. The stomach and small bowel are within normal limits. Peritoneum: No abnormal intraperitoneal fluid. No free air. Ventral Wall: Tiny fat containing umbilical hernia. Abdominal Nodes: No enlarged retroperitoneal or mesenteric lymph nodes. Vessels: Aorta and inferior vena cava are normal in size. Heavy abdominal aortic atherosclerotic calcification. PELVIS: Pelvic Organs: Unremarkable. Pelvic Nodes: Unremarkable. Miscellaneous: Small right and moderate-sized left fat containing inguinal hernia. Bilateral hydroceles are partially imaged. Moderate pelvic vascular calcification. Bones: Degenerative disc, endplate, and facet joint changes in the lower lumbar spine. IMPRESSION: 1. 3 mm distal right ureteral stone causing mild hydroureteronephrosis. 2. Bilateral nonobstructing intrarenal calculi. 3. Diverticulosis without acute diverticulitis of the colon. 4. Heavy systemic atherosclerosis. Dictated by: Mary Chapa M.D. on 12/11/2020 at 14:33 MDM Narrative Medical decision making narrative: Patient's pain remains unchanged after Toradol. He has a 3 mm kidney stone, no sign of infection. He is given pain medications to manage home. He has a urologist in [facility] who he can follow up with as well. Discharge Plan Departure Patient Disposition: Home Clinical Impression: Kidney stones Instructions: DI for Kidney Stones Activity Restrictions/Additional Instructions: * You've been diagnosed with kidney stone * What to do: Increase fluid intake, Strain urine, try to catch stone * Please follow-up with your primary care provider in the next 2-3 days, you may require urology consultation please discuss this with -If you should have fever, or pain is uncontrolled with medication at home or any other concerning symptoms return to ER for further evaluation MEDICATIONS--> sent to [facility] Take Motrin 600 mg every 8 hours as needed for pain Take Earp every 6 hours if needed for severe pain Take Zofran every 4-6 hours if needed for nausea CONTROLLED SUBSTANCE DISCHARGE (Narcotoic/benzodiazepine) 1. You have been prescribed narcotic medications, it does have acetaminophen/Tylenol/paracetamol in it so do not take extra Tylenol or Tylenol containing products 2. Please understand that we cannot provide further refills of narcotics, benzodiazepines or controlled substances through the ED and her pain management will need to be through your provider. 3. While on these medications you cannot drive or operate heavy machinery. 4. You cannot sign legal documents or perform any duties such as this. 5. As long as you're taking opiate pain medications he should also be taking a stool softener such as Colace, Dulcolax, MiraLAX or prune juice, to help avoid constipation. Prescriptions: New hydrocodone-acetaminophen 5-325 mg tablet 1 tab PO Q6H PRN (Reason: pain) Qty: 10 RF: 0 ondansetron 4 mg tablet,disintegrating 4 mg PO Q8H PRN (Reason: nausea and vomiting) Qty: 10 RF: 0 No Action diphenhydramine-acetaminophen [Tylenol PM Extra Strength] 500 MG/25 MG tablet 2 tab PO HSP PRNQty: 0 RF: 0 famotidine [Pepcid] 20 MG tablet 0 PO QDAY Qty: 100 RF: 5 atorvastatin 40 mg tablet 40 mg PO HS Qty: 90 RF: 3 losartan 25 mg tablet 25 mg PO QDAY Qty: 90 RF: 3 aspirin 81 mg tablet,delayed release (DR/EC) 162 mg PO DAILY RF: 0 Referrals: Kermit Peterson MD [Primary Care Provider] -
[2020-12-11 15:48] VITALS: BP 140/75; PULSE 71; O2SAT 97
[2020-12-11 16:07] LABS: Amorphous Sediment Urine 1+; Bacteria Urine Few (2-10); RBC Urine 10-30/HPF (0-5/HPF); Squamous Epithelial Cell Urine 0-1 /HPF (0-5/HPF); WBC Urine 1-5/HPF (0-5/HPF)
[2020-12-11 16:08] LABS: Mucus Urine 2+ (Negative)
== END 2020-12-11 15:49 | disposition home or self-care (01) ==
PROVIDERS: Emergency Provider Emergency Medicine; PCP Family Medicine
DX: N20.0 Calculus of kidney (principal); Z87.442 Personal history of urinary calculi; R11.0 Nausea
CPT/HCPCS: 36415; 74176; 80053; 81003; 81015; 83690; 85025; 87086; 96374; 96375; 99284; J1885; J2405

== ENCOUNTER → 2021-03-25 14:57 | Outpatient (CLI) | payer MEDICARE, SELFPAY ==
--- NOTE | 2021-03-25 15:01 | DI.MRI.S_ITS ---
PROCEDURE: MR KNEE LT WO CON INDICATIONS: Bilateral primary osteoarthritis of knee TECHNIQUE: Noncontrast sagittal PD fast spin echo and T2 fast spin echo with fat saturation, sagittal 3-D FLASH with fat saturation; coronal T1 spin echo and PD fast spin echo with fat saturation, and axial PD fast spin echo with fat saturation through the knee. COMPARISON: Located Within [facility], MR, KNEE WITHOUT CONTRAST, 03/13/2013, 18:04. Located Within [facility], MR, KNEE WITHOUT CONTRAST, 10/22/2016, 17:55. FINDINGS: Menisci: Medial meniscus: Intrasubstance signal changes involving the body of the medial meniscus probably prominent myxoid degeneration given no definite extension to an articular surface. Recommend clinical correlation. Trace partial extrusion Lateral meniscus: Myxoid degeneration involving the body however no discrete tear by strict criteria. Cruciate ligaments: Anterior cruciate ligament: Intact. Posterior cruciate ligament: Intact. Medial structures: The medial collateral ligament: Deep fibers not well seen raising possibility of age-indeterminate sprain. The superficial fibers appear grossly intact. Semimembranosus tendon: Low-grade interstitial tearing and tendinopathy at the insertion. No interval change. Visualized pes anserinus tendons: Intact. Bursal fluid: none. Lateral structures: The lateral collateral ligament demonstrates thickening and intrasubstance signal change in keeping with low grade sprain, statistically chronic, although technically age indeterminate. No interval change. Biceps femoris tendon appears intact. Popliteus tendon grossly unremarkable. Iliotibial band appears intact. Anterior structures: Quadriceps tendon: Intact. Medial patellofemoral ligament: Intact. Lateral patellofemoral ligament: Intact. Patellar tendon: Mild tendinopathy. Anterior soft tissues: Prepatellar and superficial infrapatellar subcutaneous edema/fluid. Deep infrapatellar region: Normal. Bones and cartilage: Marrow: No focal marrow contusion or discrete low signal fracture line. Medial compartment: Diffuse mild surface fraying of the femoral and tibial cartilage Lateral compartment: Low-grade surface fraying of the femoral and tibial cartilage. Patellofemoral compartment: Partial-thickness loss of the cartilage overlying the median patellar ridge and medial patellar facet. There is underlying subchondral marrow edema. Joint space: Effusion: Moderate joint effusion. Popliteal fossa: Multiloculated Cardenas's cyst measuring approximately 6 cm in the cephalocaudal dimension. There may be partial rupture with trace adjacent fluid Loose bodies: None. 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 This was present on the prior study. Mild tricompartmental joint degeneration as above. Slight interval progression in the patellofemoral compartment. Interval enlargement of Cardenas's cyst. Chronic appearing low-grade sprain of the deep fibers of the medial collateral ligament. This is minimally more conspicuous since the prior study Dictated by: Neftali Franklin M.D. on 03/27/2021 at 8:15 Approved by: Neftali Franklin M.D. on 03/27/2021 at 8:23
== END ==
PROVIDERS: Referring Provider Orthopaedic Surgery; Visit Provider Orthopaedic Surgery
DX: M17.0 Bilateral primary osteoarthritis of knee (principal); M71.22 Synovial cyst of popliteal space [Baker], left knee; S83.242A Other tear of medial meniscus, current injury, left knee, initial encounter
CPT/HCPCS: 73721

== ENCOUNTER → 2021-04-03 11:02 | Outpatient (CLI) | payer MEDICARE, SELFPAY ==
[2021-04-03 12:15] LABS: Hematocrit 40.4 % (41-53); Hemoglobin 13.7 g/dL (13.5-17.5)
[2021-04-03 13:13] LABS: BUN Creatinine Ratio 15.8 (6-22); Blood Urea Nitrogen 19 mg/dL (9-20); Calcium 9.2 mg/dL (8.4-10.2); Carbon Dioxide 26 mmol/L (22-32); Chloride 99 mmol/L (98-107); Estimated Glomerular Filt Rate 57.8 mL/min (>60); Glucose 136 mg/dL (80-110); HEMOLYSIS < 15 (0-50); Potassium 4.8 mmol/L (3.4-5.1); Sodium 138 mmol/L (137-145)
[2021-04-03 15:45] LABS: Creatinine Urine Random 159.6 mg/dL; Protein (Total) Urine Random 10 mg/dL (0-12); Protein Creatinine Ratio Urine 0.06 GRAM/24H
== END ==
PROVIDERS: Referring Provider Student in an Organized Health Care Education/Training Program; Visit Provider Student in an Organized Health Care Education/Training Program
DX: N05.9 Unspecified nephritic syndrome with unspecified morphologic changes (principal); D64.9 Anemia, unspecified; R80.9 Proteinuria, unspecified
CPT/HCPCS: 36415; 80048; 82570; 84156; 85014; 85018

== ENCOUNTER 2021-10-07 15:01 | Emergency (ER) | payer MEDICARE, SELFPAY ==
[2021-10-07] VITALS (12 sets, daily range): BP systolic 60–181; BP diastolic 50–85; PULSE 62–83; RESP 14–23; TEMP 36.6; O2SAT 94–97; BMI 28.1
[2021-10-07] MEDS: SODIUM CHLORIDE 0.9% 1,000 ML 500 ML IV (15:25)
[2021-10-07 15:38] LABS: Add Manual Diff / Slide Review NO; Basophils Absolute Auto 100 /uL (0-100); Basophils Percent Auto 0.6 % (0-2); Eosinophils Absolute Auto 200 /uL (0-450); Eosinophils Percent Auto 2.1 % (2-4); Hemoglobin 13.9 g/dL (13.5-17.5); Lymphocytes Absolute Auto 2300 /uL (1100-4500); Lymphocytes Percent Auto 24.5 % (25-40); Mean Corpuscular HGB Conc 34.8 % (30-36); Mean Corpuscular Hemoglobin 31.6 PG (26-34); Monocytes Absolute Auto 700 /uL (0-900); Monocytes Percent Auto 7.6 % (3-14); Neutrophils Absolute Auto 6000 /uL (1500-7000); Neutrophils Percent Auto 65.2 % (50-75); Platelet Count 237 X10^3/uL (150-400); Red Blood Cell Count 4.39 X10^6/uL (4.5-5.9); Red Cell Distribution Width 14.1 % (11.6-14.8); White Blood Cell Count 9.2 X10^3/uL (4.5-11.0)
[2021-10-07 15:39] LABS: Alanine Aminotransferase 18 IU/L (<50); Albumin 4.9 g/dL (3.5-5.0); Albumin Globulin Ratio 1.6 (1.0-2.8); Alkaline Phosphatase 71 U/L (38-126); Aspartate Aminotransferase 28 IU/L (17-59); Bilirubin Total 0.7 mg/dL (0.2-1.3); Blood Urea Nitrogen 19 mg/dL (9-20); Calcium 9.8 mg/dL (8.4-10.2); Carbon Dioxide 22 mmol/L (22-32); Chloride 103 mmol/L (98-107); Creatine Kinase 77 U/L (55-170); Estimated Glomerular Filt Rate 47 mL/min (>60); Globulin 3.1 g/dL (1.7-4.1); Glucose 127 mg/dL (80-110); HEMOLYSIS 38 (0-50); Lipase 41 U/L (23-300); Potassium 4.5 mmol/L (3.4-5.1); Sodium 137 mmol/L (137-145)
[2021-10-07 15:50] LABS: Troponin I < 0.012 ng/mL (0.01-0.034)
--- NOTE | 2021-10-07 16:40 | PC.NURSE ---
Pt ambulated well. No dizziness
--- NOTE | 2021-10-07 16:42 | ED.GENADULT ---
HPI - General Adult General Chief complaint: Syncope Stated complaint: near syncope Time Seen by Provider: 10/07/21 15:06 Source: patient and EMS Mode of arrival: EMS Limitations: no limitations History of Present Illness HPI narrative: Patient is an 81-year-old male who is here for evaluation of a near syncopal episode. Patient states he was standing watching family members wash his RV. He stated that he became lightheaded. Galien like his legs were tingling. Patient did not actually pass out. He did not fall. EMS was called. He was found to be orthostatic with a systolic blood pressure in the 70s when he was standing and 160s when he was lying down. He felt better after he was lying down for a period of time. He reported no chest pain. No shortness of breath. No palpitations. No nausea vomiting. He did receive fluids prior to my evaluation any states he feels much better and essentially back to baseline. He did have a similar episode to this at the end of last year. The 20 he was dehydrated any also had some electrolyte issues at the time as well. Related Data Home Medications Medication Instructions Recorded Confirmed diphenhydramine 25 2 tab PO HSP PRN #0 10/17/16 04/18/20 mg-acetaminophen 500 mg tablet (Tylenol PM Extra Strength) aspirin 81 mg tablet,delayed 162 mg PO DAILY 01/15/18 04/18/20 release Previous Rx's Medication Instructions Recorded famotidine 20 mg tablet (Pepcid) 0 PO QDAY #100 10/17/16 atorvastatin 40 mg tablet 40 mg PO HS #90 tab 04/18/20 losartan 25 mg tablet 25 mg PO QDAY #90 tab 04/18/20 hydrocodone 5 mg-acetaminophen 325 1 tab PO Q6H PRN #10 tab 12/11/20 mg tablet ondansetron 4 mg disintegrating 4 mg PO Q8H PRN #10 tab 12/11/20 tablet Allergies Allergy/AdvReac Type Severity Reaction Status Date / Time furosemide [From LASIX] Allergy Mild RASH Verified 10/07/21 15:52 Sulfa (Sulfonamide Allergy Verified 10/07/21 15:52 Antibiotics) Review of Systems Constitutional Constitutional: Reports system reviewed and no additional complaints, except as documented Cardiovascular Cardiovascular: Reports system reviewed and no additional complaints, except as documented Respiratory Respiratory: Reports system reviewed and no additional complaints, except as documented Gastrointestinal Gastrointestinal: Reports system reviewed and no additional complaints, except as documented Integumentary/Breasts Skin/Breast: Reports system reviewed and no additional complaints, except as documented Neurologic Neurologic: Reports system reviewed and no additional complaints, except as documented Hematologic/Lymphatic On Anticoagulants: No Patient History Medical History Acne (~1955) Cataracts, bilateral (~2009) Chicken pox (~1947) Gout (~2004) Kidney stones (~1982) Measles (~1947) Mumps (~1949) Sleep apnea (~2009) Surgical History Anesthesia History of lithotripsy (~1982) History of lithotripsy (~2002) History of surgical removal of ganglion cyst (~1967) Status post appendectomy (~1948) Status post cholecystectomy (~2002) Family History (Updated 01/14/18 @ 21:20 by Kandy Burton) Father Heart disease Mother Diabetes mellitus Heart disease Hypertension Stroke Brother Cancer Social History Smoking Status: Former smoker Smoking Status: Former smoker alcohol intake frequency: holidays/special occasions only Substance Use Type: does not use Exam Initial Vital Signs Initial Vital Signs: Vital Signs Temperature 97.9 F 10/07/21 15:04 Pulse Rate 75 10/07/21 15:04 Respiratory Rate 16 10/07/21 15:04 Blood Pressure 152/65 H 10/07/21 15:04 Pulse Oximetry 94 10/07/21 15:04 Const General: cooperative and comfortable HENMT Head: normal to inspection and normocephalic Resp Effort & Inspection: normal respiratory effort Auscultation: clear to auscultation bilaterally Cardio Rate: regular rate Rhythm: regular rhythm GI Inspection: normal to inspection Palpation: soft and No tender Skin General: no rashes or lesions noted Neuro General: patient alert, patient awake, patient oriented x3 and moves all extremities Speech: speech normal Extrem General: normal to inspection and capillary refill normal Psych Appearance: grossly normal and well kempt Course Orders Ordered: ED Orders 10/07/21 15:09 Complete Blood Count AUTO DIFF Stat Comprehensive Metabolic Panel Stat Lipase Stat Troponin & CK Cardiac Panel Stat Discontinued Medications Sodium Chloride (Normal Saline 0.9%) 1,000 mls @ 500 mls/hr IV BOLUS ONE Stop: 10/07/21 17:20 Last Infusion: 10/07/21 16:58 Dose: 0 mls/hr Documented by: Admin: 10/07/21 15:25 Dose: 500 mls/hr Documented by: RADHA Vital Signs Vital signs: Vital Signs - 8 hr 10/07/21 15:04 10/07/21 15:49 10/07/21 15:53 Temperature 97.9 F Pulse Rate 75 74 Respiratory Rate 16 17 Blood Pressure 152/65 H Blood Pressure [Orthostatic Lying] 60/50 L Blood Pressure [Orthostatic Standing] 160/70 H Pulse Oximetry 94 95 10/07/21 15:55 10/07/21 16:00 10/07/21 16:30 Temperature Pulse Rate 75 75 Respiratory Rate 23 18 Blood Pressure 148/70 H 163/75 H 169/79 H Blood Pressure [Orthostatic Lying] Blood Pressure [Orthostatic Standing] Pulse Oximetry 95 96 10/07/21 17:00 10/07/21 17:14 10/07/21 17:16 Temperature Pulse Rate 75 78 83 Respiratory Rate 18 16 16 Blood Pressure 174/82 H 168/82 H 181/85 H Blood Pressure [Orthostatic Lying] Blood Pressure [Orthostatic Standing] Pulse Oximetry 97 96 10/07/21 17:19 10/07/21 17:20 10/07/21 17:30 Temperature Pulse Rate 80 80 62 Respiratory Rate 20 14 Blood Pressure 172/81 H 147/69 H Blood Pressure [Orthostatic Lying] Blood Pressure [Orthostatic Standing] Pulse Oximetry 97 96 Medical Decision Making Lab Data Lab results reviewed: Yes I reviewed the patient's lab results. Result diagrams: 10/07/21 15:09 10/07/21 15:09 Labs: Lab Results 10/07/21 10/07/21 Range/Units 15:09 15:09 WBC 9.2 (4.5-11.0) X10^3/uL RBC 4.39 L (4.5-5.9) X10^6/uL Hgb 13.9 (13.5-17.5) g/dL Hct 40.0 L (41-53) % MCV 91.0 (80-100) fL MCH 31.6 (26-34) PG MCHC 34.8 (30-36) % RDW 14.1 (11.6-14.8) % Plt Count 237 (150-400) X10^3/uL Neut % (Auto) 65.2 (50-75) % Lymph % (Auto) 24.5 L (25-40) % [place] % (Auto) 7.6 (3-14) % Eos % (Auto) 2.1 (2-4) % Baso % (Auto) 0.6 (0-2) % Neut # (Auto) 6000 (1094-5361) /uL Lymph # (Auto) 2300 (8118-7862) /uL [place] # (Auto) 700 (0-900) /uL Eos # (Auto) 200 (0-450) /uL Baso # (Auto) 100 (0-100) /uL Sodium 137 (137-145) mmol/L Potassium 4.5 (3.4-5.1) mmol/L Chloride 103 (98-107) mmol/L Carbon Dioxide 22 (22-32) mmol/L BUN 19 (9-20) mg/dL Creatinine 1.46 H (0.66-1.25) mg/dL Estimated GFR 47 L (>60) mL/min BUN/Creatinine Ratio 13.0 (6-22) Glucose 127 H (80-110) mg/dL Calcium 9.8 (8.4-10.2) mg/dL Total Bilirubin 0.7 (0.2-1.3) mg/dL AST 28 (17-59) IU/L ALT 18 (<50) IU/L Alkaline Phosphatase 71 (38-126) U/L Total Creatine Kinase 77 (55-170) U/L CK-MB (CK-2) TNP CK-MB (CK-2) Rel Index TNP Troponin I < 0.012 (0.01-0.034) ng/mL Total Protein 8.0 (6.3-8.2) g/dL Albumin 4.9 (3.5-5.0) g/dL Globulin 3.1 (1.7-4.1) g/dL Albumin/Globulin Ratio 1.6 (1.0-2.8) Lipase 41 (23-300) U/L ECG Data Attestation: I personally reviewed and interpreted this ECG as follows: Interpretation: Sinus rhythm Ventricular rate is 72 First-degree AV block FL interval 2 through 4 milliseconds Normal axis Normal QRS Normal QTC No ST T wave changes MDM Narrative Medical decision making narrative: After fluids patient states he was back to baseline. No chest pain. No shortness of breath. He did not pass out. Not orthostatic here in the ER. He was able to stand up and walk around without issue. No focal neuro deficits. Electrolytes unremarkable. EKG unremarkable. I do suspect that this was a orthostatic issue based on the findings by EMS. Given the patient's resolution of symptoms will discharge home without further workup. He was given return precautions and follow-up instructions. He expressed understanding and agreement. Discharge Plan Departure Patient Disposition: Home Clinical Impression: Pre-syncope Instructions: Fainting Activity Restrictions/Additional Instructions: Continue to take all of your medications as directed. Be sure that you are taking your blood pressure at home like we discussed. Contact your primary provider for a follow-up. Return to the emergency department for any new or worsening symptoms. Prescriptions: No Action diphenhydramine-acetaminophen [Tylenol PM Extra Strength] 500 MG/25 MG tablet 2 tab PO HSP PRNQty: 0 0RF famotidine [Pepcid] 20 MG tablet 0 PO QDAY Qty: 100 5RF atorvastatin 40 mg tablet 40 mg PO HS Qty: 90 3RF losartan 25 mg tablet 25 mg PO QDAY Qty: 90 3RF aspirin 81 mg tablet,delayed release (DR/EC) 162 mg PO DAILY 0RF hydrocodone-acetaminophen 5-325 mg tablet 1 tab PO Q6H PRN (Reason: pain) Qty: 10 0RF ondansetron 4 mg tablet,disintegrating 4 mg PO Q8H PRN (Reason: nausea and vomiting) Qty: 10 0RF Referrals: Cj Norwood MD [Primary Care Provider] - Visit Report Forms: Patient Portal/API
== END 2021-10-07 17:55 | disposition home or self-care (01) ==
PROVIDERS: Emergency Provider Emergency Medicine; PCP Family Medicine
DX: R55 Syncope and collapse (principal)
CPT/HCPCS: 36415; 80053; 82550; 83690; 84484; 85025; 93005; 93010; 96360; 96361; 99284

== ENCOUNTER → 2021-10-19 11:34 | Outpatient (CLI) | payer MEDICARE, SELFPAY ==
[2021-10-19 12:48] LABS: Hemoglobin 13.5 g/dL (13.5-17.5)
[2021-10-19 12:55] LABS: Appearance Urine UA CLEAR; Bilirubin Urine UA NEGATIVE (NEGATIVE); Color Urine UA YELLOW; Glucose Urine UA NEGATIVE (Negative); Ketones Urine UA NEGATIVE (NEGATIVE); Leukocyte Esterase Urine UA NEGATIVE (NEGATIVE); Nitrite Urine UA NEGATIVE (Negative); Occult Blood Urine UA NEGATIVE (Negative); Protein Urine UA NEGATIVE (Negative); Urobilinogen Urine UA 0.2 E.U./dL (0.2)
[2021-10-19 13:02] LABS: BUN Creatinine Ratio 15.3 (6-22); Blood Urea Nitrogen 17 mg/dL (9-20); Calcium 9.2 mg/dL (8.4-10.2); Carbon Dioxide 29 mmol/L (22-32); Chloride 102 mmol/L (98-107); Estimated Glomerular Filt Rate > 60 mL/min (>60); Glucose 94 mg/dL (80-110); HEMOLYSIS < 15 (0-50); Potassium 4.9 mmol/L (3.4-5.1); Sodium 138 mmol/L (137-145); Uric Acid 6.7 mg/dL (3.5-8.5)
[2021-10-19 13:15] LABS: Bacteria Urine Occasional (0-1); Culture Indicated Urine Cult Not Indicated; Hyaline Casts Urine 0-1/LPF; RBC Urine 0-1/HPF (0-5/HPF); Squamous Epithelial Cell Urine 0-1 /HPF (0-5/HPF); WBC Urine 0-1/HPF (0-5/HPF)
[2021-10-20 06:22] LABS: Parathyroid Hormone Int 62 pg/mL (15-65)
== END ==
PROVIDERS: PCP Family Medicine; Referring Provider Student in an Organized Health Care Education/Training Program; Visit Provider Student in an Organized Health Care Education/Training Program
DX: N05.9 Unspecified nephritic syndrome with unspecified morphologic changes (principal); D64.9 Anemia, unspecified; N25.81 Secondary hyperparathyroidism of renal origin; M10.00 Idiopathic gout, unspecified site; N30.00 Acute cystitis without hematuria
CPT/HCPCS: 36415; 80048; 81001; 83970; 84550; 85014; 85018

== ENCOUNTER → 2022-05-23 10:35 | Outpatient (CLI) | payer MEDICARE, SELFPAY ==
[2022-05-23 11:00] LABS: Hematocrit 40.7 % (41-53); Hemoglobin 13.6 g/dL (13.5-17.5)
[2022-05-23 11:01] LABS: Appearance Urine UA CLEAR; Bilirubin Urine UA NEGATIVE (NEGATIVE); Color Urine UA YELLOW; Glucose Urine UA NEGATIVE (Negative); Ketones Urine UA NEGATIVE (NEGATIVE); Leukocyte Esterase Urine UA NEGATIVE (NEGATIVE); Nitrite Urine UA NEGATIVE (Negative); Occult Blood Urine UA NEGATIVE (Negative); Protein Urine UA NEGATIVE (Negative); Urobilinogen Urine UA 0.2 E.U./dL (0.2)
[2022-05-23 11:05] LABS: Bacteria Urine None Seen; Culture Indicated Urine Cult Not Indicated; RBC Urine None Seen (0-5/HPF); Urine Comments Microscopic Normal; WBC Urine None Seen (0-5/HPF)
[2022-05-23 11:11] LABS: BUN Creatinine Ratio 16.7 (6-22); Blood Urea Nitrogen 23 mg/dL (9-20); Calcium 10.8 mg/dL (8.4-10.2); Carbon Dioxide 23 mmol/L (22-32); Chloride 101 mmol/L (98-107); Estimated Glomerular Filt Rate 50 mL/min (>60); Glucose 130 mg/dL (80-110); HEMOLYSIS < 15 (0-50); Potassium 4.4 mmol/L (3.4-5.1); Sodium 139 mmol/L (137-145); Uric Acid 6.5 mg/dL (3.5-8.5)
[2022-05-25 10:18] LABS: Parathyroid Hormone Int 15 pg/mL (15-65)
== END ==
PROVIDERS: PCP Family Medicine; Referring Provider Student in an Organized Health Care Education/Training Program; Visit Provider Student in an Organized Health Care Education/Training Program
DX: N05.9 Unspecified nephritic syndrome with unspecified morphologic changes (principal); D64.9 Anemia, unspecified; N25.81 Secondary hyperparathyroidism of renal origin; M10.00 Idiopathic gout, unspecified site; N30.00 Acute cystitis without hematuria
CPT/HCPCS: 36415; 80048; 81001; 83970; 84550; 85014; 85018

== ENCOUNTER → 2022-06-07 12:40 | Outpatient (CLI) | payer MEDICARE, SELFPAY ==
[2022-06-07 14:27] LABS: BUN Creatinine Ratio 12.5 (6-22); Blood Urea Nitrogen 12 mg/dL (9-20); Calcium 8.7 mg/dL (8.4-10.2); Carbon Dioxide 21 mmol/L (22-32); Chloride 105 mmol/L (98-107); Estimated Glomerular Filt Rate > 60 mL/min (>60); Glucose 95 mg/dL (80-110); HEMOLYSIS < 15 (0-50); Potassium 4.2 mmol/L (3.4-5.1); Sodium 141 mmol/L (137-145)
== END ==
PROVIDERS: PCP Family Medicine; Referring Provider Student in an Organized Health Care Education/Training Program; Visit Provider Student in an Organized Health Care Education/Training Program
DX: N05.9 Unspecified nephritic syndrome with unspecified morphologic changes (principal)
CPT/HCPCS: 36415; 80048

== ENCOUNTER → 2023-05-16 10:30 | Outpatient (CLI) | payer MEDICARE, SELFPAY ==
[2023-05-16 11:06] LABS: Hematocrit 41.5 % (41-53)
[2023-05-16 12:12] LABS: BUN Creatinine Ratio 15.8 (6-22); Blood Urea Nitrogen 15 mg/dL (9-20); Calcium 9.9 mg/dL (8.4-10.2); Carbon Dioxide 22 mmol/L (22-32); Chloride 103 mmol/L (98-107); Estimated Glomerular Filt Rate > 60 mL/min (>60); Glucose 90 mg/dL (80-110); HEMOLYSIS < 15 (0-50); Potassium 4.5 mmol/L (3.4-5.1); Sodium 138 mmol/L (137-145)
[2023-05-16 12:15] LABS: Creatinine Urine Random 108.8 mg/dL; Protein (Total) Urine Random 10 mg/dL (0-12); Protein Creatinine Ratio Urine 0.09 GRAM/24H
[2023-05-21 06:32] LABS: Parathyroid Hormone Int 30 pg/mL (15-65)
== END ==
PROVIDERS: PCP Family Medicine; Referring Provider Student in an Organized Health Care Education/Training Program; Visit Provider Student in an Organized Health Care Education/Training Program
DX: N05.9 Unspecified nephritic syndrome with unspecified morphologic changes (principal); D64.9 Anemia, unspecified; N25.81 Secondary hyperparathyroidism of renal origin; R80.9 Proteinuria, unspecified
CPT/HCPCS: 36415; 80048; 82570; 83970; 84156; 85014; 85018

== ENCOUNTER → 2023-10-17 14:11 | Outpatient (CLI) | payer MEDICARE, SELFPAY ==
[2023-10-17 16:24] LABS: Hematocrit 39.1 % (41-53); Hemoglobin 13.2 g/dL (13.5-17.5)
[2023-10-17 16:34] LABS: Creatinine Urine Random 123.11 mg/dL; Protein (Total) Urine Random 8 mg/dL (0-12); Protein Creatinine Ratio Urine 0.06 GRAM/24H
[2023-10-17 16:44] LABS: BUN Creatinine Ratio 13.9 (6-22); Blood Urea Nitrogen 16 mg/dL (9-20); Calcium 8.6 mg/dL (8.4-10.2); Carbon Dioxide 23 mmol/L (22-32); Chloride 106 mmol/L (98-107); Estimated Glomerular Filt Rate > 60 mL/min (>60); Glucose 106 mg/dL (80-110); HEMOLYSIS < 15 (0-50); Potassium 4.6 mmol/L (3.4-5.1); Sodium 139 mmol/L (137-145)
[2023-10-20 08:07] LABS: Parathyroid Hormone Int 68 pg/mL (15-65)
== END ==
LOC: LAB 14:13
PROVIDERS: PCP Family Medicine; Referring Provider Student in an Organized Health Care Education/Training Program; Visit Provider Student in an Organized Health Care Education/Training Program
DX: N05.9 Unspecified nephritic syndrome with unspecified morphologic changes (principal); D70.9 Neutropenia, unspecified; D63.1 Anemia in chronic kidney disease; N25.81 Secondary hyperparathyroidism of renal origin; R80.9 Proteinuria, unspecified
CPT/HCPCS: 36415; 80048; 82570; 83970; 84156; 85014; 85018

== ENCOUNTER → 2023-11-29 13:10 | Outpatient (CLI) | payer MEDICARE, SELFPAY ==
--- NOTE | 2023-11-29 13:13 | DI.US.S_ITS ---
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 COMPARISON: [facility], , CAROTID ARTERY DOPPLER BILAT, 06/02/2015, 10:35. FINDINGS: Stenosis calculations are based on SRU (Society of Radiologists in Ultrasound) criteria. Right side: Brachial blood pressure: 110/56 mm Hg. Common carotid artery peak systolic velocity: 85 cm/sec. Internal carotid artery peak systolic velocity: 76 cm/sec. Internal carotid artery end diastolic velocity: 21 cm/sec. External carotid artery peak systolic velocity: 131 cm/sec. ICA/CCA peak systolic ratio: 0.9 . Wilburn scale imaging description: Mild sclerotic plaque Percent internal carotid artery stenosis: Less than 50 . Vertebral artery: Flow direction is antegrade. 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 Common carotid artery peak systolic velocity: 103 cm/sec. Internal carotid artery peak systolic velocity: 93 cm/sec. Internal carotid artery end diastolic velocity: 21 cm/sec. External carotid artery peak systolic velocity: 190 cm/sec. ICA/CCA peak systolic ratio: 0.9 . Wilburn scale imaging description: Trace atherosclerotic plaque Percent internal carotid artery stenosis: Less than 50 . Vertebral artery: Flow direction is antegrade. IMPRESSION: Mild atherosclerotic plaque with less than 50 percent stenosis bilateral proximal ICA Approved by: Buzz Evans M.D. on 11/29/2023 at 21:57
== END ==
PROVIDERS: Referring Provider Surgery Vascular Surgery; Visit Provider Surgery Vascular Surgery
DX: I65.23 Occlusion and stenosis of bilateral carotid arteries (principal)
CPT/HCPCS: 93880

== ENCOUNTER → 2024-11-30 07:42 | Outpatient (CLI) | payer MEDICARE, SELFPAY ==
--- NOTE | 2024-11-30 07:45 | DI.US.S_ITS ---
PROCEDURE: US CAROTID DOPPLER BI INDICATIONS: CAROTID STENOSIS TECHNIQUE: Color and pulse Doppler interrogation was performed of both carotid systems, with image documentation and velocity measurements. COMPARISON: [facility], [place], US CAROTID DOPPLER BI, 11/29/2023, 13:20. FINDINGS: Stenosis calculations are based on SRU (Society of Radiologists in Ultrasound) criteria. Right side: Brachial blood pressure: 103/59 mm Hg. Common carotid artery peak systolic velocity: 61 cm/sec. Internal carotid artery peak systolic velocity: 62 cm/sec. Internal carotid artery end diastolic velocity: 19 cm/sec. External carotid artery peak systolic velocity: 138 cm/sec. ICA/CCA peak systolic ratio: 1.0. Wilburn scale imaging description: Mild plaque. Percent internal carotid artery stenosis: Less than 50% stenosis. Vertebral artery: Flow direction is antegrade. Left side: Brachial blood pressure: 91/55 mm Hg. Common carotid artery peak systolic velocity: 85 cm/sec. Internal carotid artery peak systolic velocity: 70 cm/sec. Internal carotid artery end diastolic velocity: 22 cm/sec. External carotid artery peak systolic velocity: 126 cm/sec. ICA/CCA peak systolic ratio: 0.8. Wilburn scale imaging description: Mild plaque. Percent internal carotid artery stenosis: Less than 50% stenosis. Vertebral artery: Flow direction is antegrade. IMPRESSION: 1. Right ICA: Less than 50 % stenosis. 2. Left ICA: Less than 50 % stenosis. 3. Antegrade flow in the bilateral vertebral arteries. Dictated by: Bulmaro Ruano M.D. on 11/30/2024 at 9:47 Approved by: Bulmaro Ruano M.D. on 11/30/2024 at 9:48
== END ==
PROVIDERS: PCP Family Medicine; Referring Provider Physician Assistant; Visit Provider Physician Assistant
DX: I65.23 Occlusion and stenosis of bilateral carotid arteries (principal)
CPT/HCPCS: 93880